=== PATIENT | female | born 1995 | race Caucasian/White ===

== ENCOUNTER 2017-12-26 15:35 | Emergency (ER) | payer BC ==
[~2017-12-26] VITALS: Ht 157.5 cm; Wt 97.4 kg
[2017-12-26 15:49] VITALS: BP 139/90; PULSE 96; TEMP 36.8; O2SAT 97; Ht 157.5 cm; Wt 97.4 kg
--- NOTE | 2017-12-26 16:47 | EMERGENCY ROOM VISIT NOTE ---
History Report prepared by Ayla: Kevin Summers Under the Supervision of: Dr. Bryan Andrew M.D. First contact with patient: 15:52 Chief Complaint: ABDOMINAL PAIN Stated Complaint: ABDOMINAL PAIN, BLEEDING History of Present Illness The patient is a 22 year old female who presents to the Emergency Room with complaints of a rectal bleed that the patient noticed today following a bowel movement earlier today. The patient states that she first noticed some bleeding on the 11 of december, 15 days ago. This bleeding resolved until the bowel movement today. She tried to use the bathroom again, shortly after the first BM , and noticed there was blood again. The patient describes the event as "bright red blood." She is experiencing some pain in her rectum with bowel movements. She denies any nausea, vomiting, fevers, or syncope. She denies any chance of , vaginal bleeding or vaginal discharge. Patient is not engaging in any anal sex. Source of History: patient Onset: 15 days ago first episode Position: other (Rectal) Quality: other (Rectal bleed) Timing: other (Recurrant) Associated Symptoms: + abdominal pain, No fevers, No chest pain Review of Systems See HPI for pertinent positives and negatives. A total of ten systems were reviewed and were otherwise negative. Past Medical & Surgical No medical history stated. Family History Hypertension Social History Smoking Status: Never Smoker Marital Status: single Occupation Status: employed Physical Exam Vital Signs Date Time Temp Pulse Resp B/P (MAP) Pulse Ox O2 Delivery O2 Flow Rate FiO2 12/26/17 15:49 36.8 96 18 139/90 97 Room Air Physical Exam Physical Exam GENERAL: She is oriented to person, place, and time. She appears well- developed and well-nourished. She does not appear distressed. ____ HENT: Exam performed. Head: Normocephalic and atraumatic. Right Ear: External ear normal. No mastoid tenderness. Left Ear: External ear normal. No mastoid tenderness. Mouth/Throat: The oropharynx is clear and moist. No trismus in the jaw. No dental abscesses or uvula swelling. No oropharyngeal exudate or tonsillar abscesses. ____ EYES: Conjunctivae and EOM are normal. Pupils are equal, round, and reactive to light. Right eye exhibits no discharge. Left eye exhibits no discharge. No scleral icterus. ____ NECK: Normal range of motion. Neck supple. No JVD present. No spinous process tenderness present. No carotid bruit present. No rigidity. No tracheal deviation and normal range of motion present. No Brudzinski's sign and no Kernig 's sign noted. ____ CV: Normal rate, regular rhythm, normal heart sounds and intact distal pulses. There is no peripheral edema. Palpable radial pulses bue. ____ PULM/CHEST: Effort normal and breath sounds normal. No respiratory distress. No stridor. She has no wheezes. She has no rales. Chest Wall: She exhibits no tenderness. ____ ABD: The abdomen is soft. Bowel sounds are normal. She has no distension. No mass is present. There is no tenderness. There is no rebound, no guarding, no Singh's sign and no tenderness at McBurney's point. Rovsig negative MUSC/SKEL: Normal range of motion. There is no peripheral edema, tenderness or deformity. LYMPH: No cervical adenopathy. ____ NEURO: She is alert and oriented to person, place, and time. She has normal strength. No cranial nerve deficit or sensory deficit. Coordination and gait normal. GCS eye subscore is 4. GCS verbal subscore is 5. GCS motor subscore is 6. Cerebellar tests wnl. ____ SKIN: Skin is warm and dry. She is not diaphoretic. ____ PSYCH: She has a normal mood and affect. Her behavior is normal. Judgment and thought content normal. ____ RECTAL: Rectal exam reveals an anal fissure at 12 o'clock Medical Decision & Procedures ED Course 1604: The patient was evaluated in room B6. A complete history and physical exam was performed. Vital signs stable. Patient has anal fissure, most likely causing her anal pain and anal bleeding. Encouraged to use Preparation H suppositories and cream. Encouraged to increase her fiber intake in her diet and eat lots of fresh vegetables and fruits. Plan of care discussed with patient and questions answered. The patient was given both verbal and printed discharge instructions. The patient verbalized understanding and ability to comply. The patient is to seek outpatient follow up as noted in the discharge instructions. The patient verbalized understanding and ability to comply. The patient is discharged in stable condition. The patient was instructed to return for worsening symptoms. Medical Decision Vital signs stable. Patient has anal fissure, most likely causing her anal pain and anal bleeding. Encouraged to use Preparation H suppositories and cream. Encouraged to increase her fiber intake in her diet and eat lots of fresh vegetables and fruits. Plan of care discussed with patient and questions answered. The patient was given both verbal and printed discharge instructions. The patient verbalized understanding and ability to comply. The patient is to seek outpatient follow up as noted in the discharge instructions. The patient verbalized understanding and ability to comply. The patient is discharged in stable condition. The patient was instructed to return for worsening symptoms. Medication Reconcilliation Current Medication List: was personally reviewed by me Blood Pressure Screening Patient's blood pressure: Elevated blood pressure Blood pressure disposition: Elevated BP felt to be situational Impression Primary Impression: Anal fissure Scribe Attestation The scribe's documentation has been prepared under my direction and personally reviewed by me in its entirety. I confirm that the note above accurately reflects all work, treatment, procedures, and medical decision making performed by me. The chart was completed utilizing [employer] Speech voice recognition software. Grammatical errors, random word insertions, pronoun errors, and incomplete sentences are an occasional consequence of this system due to software limitations, ambient noise, and hardware issues. Any formal questions or concerns about the content, text, or information contained within the body of this dictation should be directly addressed to the physician for clarification. Departure Information Dispostion Home / Self-Care Referrals No Doctor, Assigned (PCP) Forms HOME CARE DOCUMENTATION FORM, IMPORTANT VISIT INFORMATION Patient Instructions My [facility] Additional Instructions Apply Preparation H ointment and suppositories to the rectal area. Return to the emergency department if you lose consciousness, develop chest pain or shortness of breath. Be sure to eat plenty of fibrous foods such as raw vegetables and fruits.
== END 2017-12-26 16:20 | disposition home or self-care (01) ==
LOC: C.EDB 15:40
DX: K60.2 Anal fissure, unspecified (principal)